=== PATIENT | female | born 1945 | race African-American/Black ===

== ENCOUNTER 2020-08-25 14:28 | Inpatient (IN) | payer MEDICARE ==
[~2020-08-25] VITALS: Ht 170.2 cm; Wt 88.5 kg
[~2020-08-25 14:28] MED LIST: INSLIS SUBCUT; INSU100I28 SQ
[2020-08-25 15:34] LABS: BASOPHILS % 0.8 % (0.0-2.0); EOSINOPHILS % 4.5 % (0.0-5.0); HEMOGLOBIN. 10.6 g/dL (12.0-16.0); LYMPHOCYTES % 26.3 % (20.0-50.0); MEAN CORPUSCULAR HEMOGLOBIN 25.8 pg (28.0-32.0); MEAN CORPUSCULAR VOLUME 80.6 fL (81.0-99.0); MEAN PLATELET VOLUME 8.8 fl (7.4-10.4); MONOCYTES % 6.5 % (2.0-8.0); NEUTROPHILS % 61.9 % (40.0-76.0); PLATELET 145 x1000/uL (130-400); RED BLOOD CELL COUNT 4.09 mill/uL (4.2-5.4); RED CELL DISTRIBUTION WIDTH 16.5 % (11.6-14.6)
[2020-08-25 16:02] LABS: CHLORIDE 99 mEq/L (98-107)
[2020-08-25] MEDS ORDERED: ACETAMINOPHEN 325MG TABLET PO ONE (17:00)
[2020-08-25] MEDS ORDERED: KETOROLAC 15MG/ML VIAL IV ONE (17:15)
[2020-08-25] MEDS ORDERED: HYDRALAZINE HCL 50MG TABLET PO ONE (17:15)
[2020-08-25] MEDS ORDERED: CLONIDINE 0.1MG TABLET PO ONE (21:42)
[2020-08-26] MEDS: AMLODIPINE 10MG TABLET PO SCH (00:54)
[2020-08-26] MEDS ORDERED: ACETAMINOPHEN 325MG TABLET PO PRN (01:00)
[2020-08-26] MEDS ORDERED: DOCUSATE SODIUM 100MG CAPSULE PO PRN (01:00)
[2020-08-26] MEDS: ENOXAPARIN 30MG/0.3ML SYR SUBCUT SCH (01:00)
[2020-08-26] MEDS: NITROGLYCERIN 0.1MG/HR PATCH TOP SCH (01:15)
[2020-08-26] MEDS: CLONIDINE 0.3MG TABLET PO SCH (02:47)
[2020-08-26] MEDS: HYDRALAZINE HCL 100MG TABLET PO SCH ×2 (06:00→14:53)
[2020-08-26] MEDS: SODIUM CHLORIDE 0.9% INJ 3ML FLUSH IVF SCH ×2 (06:00→14:41)
[2020-08-26] MEDS ORDERED: NITROGLYCERIN 50 MG PREMIX 250 ML IV PRN (06:30)
[2020-08-26 10:28] LABS: BASOPHILS % 0.9 % (0.0-2.0); EOSINOPHILS % 3.1 % (0.0-5.0); HEMATOCRIT. 32.6 % (36.0-48.0); HEMOGLOBIN. 10.5 g/dL (12.0-16.0); LYMPHOCYTES % 20.1 % (20.0-50.0); MEAN CORPUSCULAR HEMOGLOBIN 25.8 pg (28.0-32.0); MEAN CORPUSCULAR VOLUME 79.7 fL (81.0-99.0); MEAN PLATELET VOLUME 8.8 fl (7.4-10.4); MONOCYTES % 5.8 % (2.0-8.0); NEUTROPHILS % 70.1 % (40.0-76.0); PLATELET 149 x1000/uL (130-400); RED BLOOD CELL COUNT 4.09 mill/uL (4.2-5.4); RED CELL DISTRIBUTION WIDTH 16.1 % (11.6-14.6)
[2020-08-26] MEDS ORDERED: DEXTROSE 50% WATER 50ML SYRINGE IV PRN (12:45)
[2020-08-26] MEDS: BLOOD SUGAR DIAGNOSTIC STRIP TEST SCH ×2 (12:55→17:56)
[2020-08-26] MEDS: HYDROCODONE/ACETAMINOPHEN 5/325MG TABLET PO PRN ×2 (16:04→21:30)
[2020-08-26] MEDS: INSULIN LISPRO 100 UNITS/ML SUBCUT SCH ×2 (18:16→18:21)
[2020-08-26] MEDS ORDERED: HYDROCODONE/ACETAMINOPHEN 10/325MG TABLET PO PRN (23:45)
[2020-08-27] MEDS: HYDRALAZINE HCL 100MG TABLET PO SCH (00:41)
[2020-08-27] MEDS: CLONIDINE 0.3MG TABLET PO SCH ×2 (03:03→09:00)
[2020-08-27] MEDS: BLOOD SUGAR DIAGNOSTIC STRIP TEST SCH ×3 (03:29→11:30)
[2020-08-27] MEDS: SODIUM CHLORIDE 0.9% INJ 3ML FLUSH IVF SCH ×2 (03:33→06:52)
[2020-08-27] MEDS: INSULIN LISPRO 100 UNITS/ML SUBCUT SCH ×3 (03:33→12:00)
[2020-08-27] MEDS ORDERED: HYDRALAZINE HCL 50MG TABLET PO SCH (06:00)
[2020-08-27] MEDS: NITROGLYCERIN 0.1MG/HR PATCH TOP SCH (09:00)
[2020-08-27] MEDS: ENOXAPARIN 30MG/0.3ML SYR SUBCUT SCH (09:00)
[2020-08-27] MEDS: AMLODIPINE 10MG TABLET PO SCH (09:00)
[2020-08-27] MEDS ORDERED: CLOPIDOGREL 75MG TABLET PO SCH (11:15)
[2020-08-27] MEDS ORDERED: MINOXIDIL 2.5MG TABLET PO SCH (11:30)
[2020-08-27] MEDS ORDERED: HYDRALAZINE HCL 25MG TABLET PO NR (12:15)
[2020-08-27] MEDS ORDERED: HYDRALAZINE HCL 100MG TABLET PO SCH (14:00)
[2020-08-27 15:30] VITALS: BP 160/45
== END 2020-08-27 15:49 | disposition left against medical advice (07) | DRG 304 ==
LOC: ER 14:28 → EDBEDREQ 17:18 → ENRESERV 19:52 → CANRESERV 19:52 → EDBEDREQSVC 08-26 07:32 → MICUSO 08-26 17:16
PROVIDERS: ADMIT Internal Medicine; ATTEND Internal Medicine
DX: I16.0 Hypertensive urgency (principal); N18.6 End stage renal disease; E66.9 Obesity, unspecified; E78.5 Hyperlipidemia, unspecified; I27.20 Pulmonary hypertension, unspecified; E11.22 Type 2 diabetes mellitus with diabetic chronic kidney disease; D64.9 Anemia, unspecified; I35.1 Nonrheumatic aortic (valve) insufficiency; I13.11 Hypertensive heart and chronic kidney disease without heart failure, with stage 5 chronic kidney disease, or end stage renal disease; R00.1 Bradycardia, unspecified; G89.29 Other chronic pain; M54.9 Dorsalgia, unspecified; I44.60 Unspecified fascicular block; I45.10 Unspecified right bundle-branch block; R07.9 Chest pain, unspecified; Z53.29 Procedure and treatment not carried out because of patient's decision for other reasons; Z99.2 Dependence on renal dialysis; Z90.711 Acquired absence of uterus with remaining cervical stump; Z90.49 Acquired absence of other specified parts of digestive tract; Z82.49 Family history of ischemic heart disease and other diseases of the circulatory system; Z88.8 Allergy status to other drugs, medicaments and biological substances; Z88.2 Allergy status to sulfonamides; Z88.6 Allergy status to analgesic agent; Z68.30 Body mass index [BMI] 30.0-30.9, adult; Z88.5 Allergy status to narcotic agent; Z71.3 Dietary counseling and surveillance
CPT/HCPCS: 36415; 71045; 80048; 80053; 82962; 83036; 83880; 84484; 85025; 93005; 93971; 99285; J1650; J1815; J1885; J3490

== ENCOUNTER 2022-09-05 19:25 | Emergency (ER) | payer MEDICARE ==
[~2022-09-05] VITALS: Ht 162.6 cm; Wt 75.0 kg
[2022-09-05] MEDS ORDERED: TRAMADOL 50MG TABLET PO ONE (23:45)
[2022-09-05] MEDS ORDERED: ONDANSETRON 4MG ODT PO ONE (23:45)
[2022-09-06 00:02] LABS: BASOPHILS % 0.4 % (0.0-2.0); EOSINOPHILS % 0.7 % (0.0-5.0); LYMPHOCYTES % 15.4 % (20.0-50.0); MEAN CORPUSCULAR HEMOGLOBIN 26.7 pg (28.0-32.0); MEAN CORPUSCULAR VOLUME 82.5 fL (81.0-99.0); MEAN PLATELET VOLUME 8.7 fl (7.4-10.4); MONOCYTES % 3.8 % (2.0-8.0); NEUTROPHILS % 79.7 % (40.0-76.0); PLATELET 237 x1000/uL (130-400); RED BLOOD CELL COUNT 4.48 mill/uL (4.2-5.4)
[2022-09-06] MEDS ORDERED: MORPHINE SULFATE 4 MG/ML CPJ (NOT FOR IM USE) IV ONE (00:30)
[2022-09-06] MEDS ORDERED: ONDA4TAB11 PO (01:18)
[2022-09-06 08:17] VITALS: BP 152/65
== END 2022-09-06 09:04 | disposition home or self-care (01) ==
LOC: ER 19:25
DX: R10.32 Left lower quadrant pain (principal); E10.22 Type 1 diabetes mellitus with diabetic chronic kidney disease; N18.6 End stage renal disease; Z90.710 Acquired absence of both cervix and uterus; Z99.2 Dependence on renal dialysis; Z79.4 Long term (current) use of insulin; Z88.6 Allergy status to analgesic agent; Z88.5 Allergy status to narcotic agent; Z88.8 Allergy status to other drugs, medicaments and biological substances
CPT/HCPCS: 36415; 71045; 80048; 85025; 96374; 99284; J2270; Q0162